=== PATIENT | female | born 1965 | race Caucasian/White ===

== ENCOUNTER → 2018-06-02 08:24 | Outpatient (CLI) | payer OTHER, SELFPAY ==
[2018-03-26 17:37] VITALS: BMI 46.1
--- NOTE | 2018-06-02 08:28 | US_ITS ---
STUDY: SUPERFICIAL ULTRASOUND - RIGHT UPPER EXTREMITY. REASON FOR EXAM: Female, 52 years old. Upper examination lipoma. TECHNIQUE: A superficial ultrasound was performed with real-time and static concepcion-scale imaging. COMPARISON: None. FINDINGS: There is a 4.6 x 2.7 x 1.7 cm isoechoic solid rounded focus 3.5 mm deep to the skin surface within the mid right upper extremity. There is no significant internal vascularity. There is no posterior shadowing visualized. US/Ext Non Vasc Limited/Soft Tiss IMPRESSION: Findings suggestive of a 4.6 x 2.7 x 1.7 cm lipoma within the region of concern. Electronically Signed: Bertha Cohen MD at 10:30 EDT Tel , Service support ,
== END ==
PROVIDERS: Family Provider Physician Assistant; PCP Physician Assistant
DX: D17.21 Benign lipomatous neoplasm of skin and subcutaneous tissue of right arm (principal)
CPT/HCPCS: 76882